=== PATIENT | female | born 1965 | race Two or more races ===

== ENCOUNTER 2023-12-03 13:40 | Inpatient (IN) | payer MEDICARE, OTHER ==
[~2023-12-03] VITALS: Ht 172.7 cm; Wt 102.5 kg
[2023-12-03] MEDS ORDERED: MAGNESIUM HYDROXIDE 30 ML UDC PO PRN (14:00)
[2023-12-03] MEDS ORDERED: IV NS 0.9% 500 ML BAG IV ONE (14:00)
[2023-12-03] MEDS ORDERED: ZOLPIDEM TARTRATE 5 MG TABLET PO PRN (14:00)
[2023-12-03] MEDS ORDERED: ACETAMINOPHEN 325 MG TABLET PO PRN (14:00)
[2023-12-03] MEDS ORDERED: MAG HYDROX/AL HYDROX/SIMETH 30 ML UDC PO PRN (14:00)
[2023-12-03] MEDS ORDERED: Z GUARD REMEDY 4 OZ OINT TP PRN (14:00)
[2023-12-03] MEDS ORDERED: ONDANSETRON HCL/PF 4 MG/2 ML VIAL IVP PRN (14:00)
[2023-12-03 14:32] LABS: BASOPHILS % (AUTO) 0.4 % (0.0-2.0); EOSINOPHILS # (AUTO) 0.2 K/uL (0.0-0.7); EOSINOPHILS % (AUTO) 2.3 % (0.0-6.0); HEMATOCRIT 41 % (33-45); HEMOGLOBIN 13.3 g/dL (11.5-14.8); LYMPHOCYTES # (AUTO) 3.6 K/uL (0.8-4.8); LYMPHOCYTES % (AUTO) 45.6 % (20.0-44.0); MEAN CORPUSCULAR HEMOGLOBIN 28 PG (26.0-33.0); MEAN CORPUSCULAR HGB CONC 33 g/dl (31.0-36.0); MEAN CORPUSCULAR VOLUME 84 fL (82-100); MONOCYTES # (AUTO) 0.6 K/uL (0.1-1.30); MONOCYTES % (AUTO) 7.5 % (2.0-12.0); NEUTROPHILS # (AUTO) 3.5 K/uL (1.8-8.9); NEUTROPHILS % (AUTO) 44.2 % (43.0-81.0); PLATELET COUNT (AUTO) 244 K/uL (150-450); RED BLOOD CELL COUNT(AUTO) 4.83 MIL/uL (4.0-5.2); RED CELL DISTRIBUTION WIDTH 15.4 % (11.5-15.0)
[2023-12-03] MEDS ORDERED: BISA10SU11 RC (14:35)
[2023-12-03] MEDS ORDERED: MAGN400O6 PO (14:35)
[2023-12-03] MEDS ORDERED: ATOR40TA PO (14:35)
[2023-12-03] MEDS ORDERED: ARIP10TA9 PO (14:35)
[2023-12-03] MEDS ORDERED: INSU100I26 SQ (14:35)
[2023-12-03] MEDS ORDERED: CARV3.12 PO (14:35)
[2023-12-03] MEDS ORDERED: ASPI-1169 PO (14:35)
[2023-12-03] MEDS ORDERED: GLIP5TAB13 PO (14:35)
[2023-12-03] MEDS ORDERED: NA P133E RC (14:35)
[2023-12-03] MEDS ORDERED: ACET-868 PO (14:35)
[2023-12-03] MEDS ORDERED: METF-442 PO (14:35)
[2023-12-03 14:47] LABS: ALBUMIN 3.7 g/dL (3.4-5.0); BILIRUBIN,TOTAL 0.1 mg/dL (0.2-1.0); CREATININE 0.9 mg/dL (0.6-1.3); TOTAL PROTEIN, SERUM 7.8 g/dL (6.4-8.2)
[2023-12-03 16:30] LABS: APPEARANCE,URINE CLEAR (CLEAR); BILIRUBIN,URINE NEGATIVE (NEGATIVE); BLOOD, URINE NEGATIVE Ery/uL (NEGATIVE); COLOR,URINE YELLOW (YELLOW); KETONES,URINE NEGATIVE (NEGATIVE); LEUKOCYTE ESTERASE ,URINE NEGATIVE (NEGATIVE); NITRITE, URINE NEGATIVE (NEGATIVE); PH,URINE 5.5 (5.0-8.0); PROTEIN,URINE NEGATIVE (NEGATIVE); UGLUCOSE NEGATIVE (NEGATIVE); UROBILINOGEN,URINE 0.2 EU/dL (0.2)
[2023-12-03] MEDS: IV NS 0.9% 1,000 ML IV PRN (20:28)
[2023-12-04 07:44] LABS: BASOPHILS % (AUTO) 0.6 % (0.0-2.0); EOSINOPHILS # (AUTO) 0.2 K/uL (0.0-0.7); EOSINOPHILS % (AUTO) 2.5 % (0.0-6.0); HEMATOCRIT 38 % (33-45); HEMOGLOBIN 12.2 g/dL (11.5-14.8); LYMPHOCYTES # (AUTO) 3.6 K/uL (0.8-4.8); LYMPHOCYTES % (AUTO) 53.8 % (20.0-44.0); MEAN CORPUSCULAR HEMOGLOBIN 27 PG (26.0-33.0); MEAN CORPUSCULAR HGB CONC 32 g/dl (31.0-36.0); MEAN CORPUSCULAR VOLUME 85 fL (82-100); MONOCYTES # (AUTO) 0.5 K/uL (0.1-1.30); MONOCYTES % (AUTO) 8.1 % (2.0-12.0); NEUTROPHILS # (AUTO) 2.3 K/uL (1.8-8.9); PLATELET COUNT (AUTO) 223 K/uL (150-450); RED BLOOD CELL COUNT(AUTO) 4.43 MIL/uL (4.0-5.2); RED CELL DISTRIBUTION WIDTH 15.3 % (11.5-15.0); WHITE BLOOD COUNT (AUTO) 6.7 K/uL (4.3-11.0)
[2023-12-04 08:20] LABS: CALCIUM, SERUM 9.4 mg/dL (8.5-10.1); CREATININE 0.8 mg/dL (0.6-1.3); MAGNESIUM 2.1 mg/dL (1.8-2.4); PHOSPHORUS 4.5 mg/dL (2.5-4.9)
[2023-12-04] MEDS ORDERED: NA PHOS,M-B/NA PHOS,DI-BA 1 EA ENEMA RC PRN (14:00)
[2023-12-04] MEDS ORDERED: ACETAMINOPHEN 325 MG TABLET PO PRN (14:00)
[2023-12-04] MEDS ORDERED: MAGNESIUM HYDROXIDE 30 ML UDC PO PRN (14:00)
[2023-12-04] MEDS ORDERED: DEXTROSE 50%-WATER 50 ML DISP.SYRIN IV PRN (14:00)
[2023-12-04] MEDS ORDERED: INSULIN REGULAR, HUMAN 100 UNIT/ML 3 ML VIAL SQ PRN (14:00)
[2023-12-04] MEDS ORDERED: BISACODYL SUPP (10 MG) 10 MG/SUPP.RECT SUPP.RECT RC PRN (14:00)
[2023-12-04] MEDS: CARVEDILOL 3.125 MG TABLET PO SCH (17:00)
[2023-12-04] MEDS: METFORMIN 500 MG TABLET PO SCH (17:00)
[2023-12-04] MEDS: BLOOD SUGAR DIAGNOSTIC 1 EACH STRIP VI SCH ×2 (18:46→21:16)
[2023-12-04] MEDS ORDERED: METFORMIN 500 MG TABLET ONE (19:24)
[2023-12-04] MEDS ORDERED: CARVEDILOL 3.125 MG TABLET ONE (19:25)
[2023-12-04] MEDS ORDERED: ATORVASTATIN 40 MG TABLET ONE (20:06)
[2023-12-04] MEDS ORDERED: ARIPIPRAZOLE 2 MG TABLET ONE (20:06)
[2023-12-04] MEDS: ARIPIPRAZOLE 5 MG TABLET PO SCH (21:09)
[2023-12-04] MEDS: ATORVASTATIN 40 MG TABLET PO SCH (21:09)
[2023-12-04] MEDS: *INSULIN REGULAR(HUMULIN R)HUM 100 UNIT/ML VIAL SQ PRN (21:15)
[2023-12-04] MEDS: INSULIN GLARGINE, 100 UNIT/ML CARTRIDGE SQ SCH (21:16)
[2023-12-04] MEDS: IV NS 0.9% 1,000 ML IV PRN (22:31)
[2023-12-04 22:40] VITALS: BP 135/92; TEMP 97.7; O2SAT 99
[2023-12-05 00:09] VITALS: BP 135/92; TEMP 97.7; O2SAT 99
[2023-12-05 04:00] VITALS: BP 126/67; TEMP 97.5; O2SAT 98
[2023-12-05 06:34] LABS: BASOPHILS % (AUTO) 0.5 % (0.0-2.0); EOSINOPHILS # (AUTO) 0.2 K/uL (0.0-0.7); EOSINOPHILS % (AUTO) 2.4 % (0.0-6.0); HEMATOCRIT 37 % (33-45); HEMOGLOBIN 11.7 g/dL (11.5-14.8); LYMPHOCYTES # (AUTO) 3.8 K/uL (0.8-4.8); LYMPHOCYTES % (AUTO) 53.7 % (20.0-44.0); MEAN CORPUSCULAR HEMOGLOBIN 27 PG (26.0-33.0); MEAN CORPUSCULAR HGB CONC 32 g/dl (31.0-36.0); MEAN CORPUSCULAR VOLUME 84 fL (82-100); MONOCYTES # (AUTO) 0.5 K/uL (0.1-1.30); MONOCYTES % (AUTO) 7.4 % (2.0-12.0); NEUTROPHILS # (AUTO) 2.5 K/uL (1.8-8.9); PLATELET COUNT (AUTO) 216 K/uL (150-450); RED BLOOD CELL COUNT(AUTO) 4.34 MIL/uL (4.0-5.2); RED CELL DISTRIBUTION WIDTH 15.4 % (11.5-15.0); WHITE BLOOD COUNT (AUTO) 7.1 K/uL (4.3-11.0)
[2023-12-05 06:52] LABS: CALCIUM, SERUM 9.1 mg/dL (8.5-10.1); CREATININE 0.8 mg/dL (0.6-1.3); POTASSIUM 3.8 mmol/L (3.5-5.1)
[2023-12-05] MEDS: BLOOD SUGAR DIAGNOSTIC 1 EACH STRIP VI SCH ×4 (07:30→21:13)
[2023-12-05] MEDS: ASPIRIN 81 MG TAB.CHEW PO SCH (08:33)
[2023-12-05] MEDS: METFORMIN 500 MG TABLET PO SCH ×2 (08:34→17:04)
[2023-12-05] MEDS: CARVEDILOL 3.125 MG TABLET PO SCH ×2 (09:15→17:07)
[2023-12-05] MEDS: *INSULIN REGULAR(HUMULIN R)HUM 100 UNIT/ML VIAL SQ PRN ×3 (10:17→17:15)
[2023-12-05 12:00] VITALS: BP 133/82; TEMP 98.6; O2SAT 96
[2023-12-05 20:00] VITALS: BP 116/61; TEMP 99; O2SAT 98
[2023-12-05] MEDS: ARIPIPRAZOLE 5 MG TABLET PO SCH (21:02)
[2023-12-05] MEDS: ATORVASTATIN 40 MG TABLET PO SCH (21:03)
[2023-12-05] MEDS: INSULIN GLARGINE, 100 UNIT/ML CARTRIDGE SQ SCH (21:25)
[2023-12-06 04:00] VITALS: BP 131/70; TEMP 98.4; O2SAT 97
[2023-12-06] MEDS: IV NS 0.9% 1,000 ML IV PRN (06:57)
[2023-12-06 08:00] VITALS: BP 148/78; TEMP 97.9; O2SAT 97
[2023-12-06] MEDS: BLOOD SUGAR DIAGNOSTIC 1 EACH STRIP VI SCH ×2 (08:07→12:24)
[2023-12-06] MEDS: ASPIRIN 81 MG TAB.CHEW PO SCH (09:27)
[2023-12-06 09:28] VITALS: BP 148/78
[2023-12-06] MEDS: METFORMIN 500 MG TABLET PO SCH (09:28)
[2023-12-06] MEDS: CARVEDILOL 3.125 MG TABLET PO SCH (09:28)
== END 2023-12-06 14:44 | DRG 640 ==
LOC: ER 14:23 → TRANSITION 15:50 → MEDSG1 12-04 22:13
PROVIDERS: ADMIT Internal Medicine; ATTEND Internal Medicine
DX: E86.0 Dehydration (principal); G93.41 Metabolic encephalopathy; R62.7 Adult failure to thrive; I11.0 Hypertensive heart disease with heart failure; I50.9 Heart failure, unspecified; E11.9 Type 2 diabetes mellitus without complications; E78.5 Hyperlipidemia, unspecified; Z79.82 Long term (current) use of aspirin; Z79.84 Long term (current) use of oral hypoglycemic drugs; Z91.199 Patient's noncompliance with other medical treatment and regimen due to unspecified reason; R53.1 Weakness; R63.4 Abnormal weight loss; Z68.34 Body mass index [BMI] 34.0-34.9, adult; F20.9 Schizophrenia, unspecified; Z20.822 Contact with and (suspected) exposure to COVID-19
CPT/HCPCS: 36415; 71045-TC; 80048-TC; 80076-TC; 82962-TC; 83735-TC; 84100-TC; 84443-TC; 85025-TC; G0378; J1815; J7030